=== PATIENT | female | born 1950 | race Caucasian/White ===

== ENCOUNTER 2016-10-14 12:19 | Day surgery (SDC) | payer OTHER ==
[~2016-10-14] VITALS: Ht 154.9 cm; Wt 63.5 kg
[~2016-10-14 12:19] MED LIST: 0.9% Sodium Chloride 1,000 ML IV SCH; ALBU2.5V4 INHALATION; ASPI-973 PO; ATOR20TA PO; BECL8.7A6 INHALATION; CITA20TA11 PO; CYAN10008 INJ; FLUT9.9S NS; IBUP800T28 PO; LEVO100T6 PO; LISI10TA PO; MULT-1018 PO; Sodium Chloride LOK Flush 10 mL Syringe IV PRN; fentaNYL-PF 50 mCg/mL 2 mL Inj IVPUSH PRN
[2016-10-14] MEDS ORDERED: fentaNYL-PF 50 mCg/mL 2 mL Inj IVPUSH ONE (12:20)
[2016-10-14 13:43] VITALS: BP 142/89; PULSE 60; O2SAT 100
[2016-10-14 14:59] VITALS: BP 140/67; PULSE 64; RESP 16; O2SAT 99
[2016-10-14 15:09] VITALS: BP 124/79; PULSE 65; RESP 16; O2SAT 99
--- NOTE | 2016-10-15 00:35 | ENDO ---
[address] [address] ENDOSCOPY PROCEDURE PATIENT: GERALD AGARWAL : 1950 MR#: [id number] ADMIT: 10/14/2016 JOB ID: [id number] DATE OF SERVICE: 10/14/2016 TITLE OF OPERATION: Esophagogastroduodenoscopy with biopsy. PREOPERATIVE DIAGNOSIS(ES): Weight loss and nausea. POSTOPERATIVE DIAGNOSIS(ES): Mild nonerosive gastritis. ANESTHESIA: 1. Fentanyl 100 mcg. 2. Versed 5 mg IV administered. COMPLICATIONS: None. BLOOD LOSS: Minimal. DESCRIPTION OF PROCEDURE: After risks and benefits were explained to the patient, informed consent was obtained. After anesthesia administered, upper endoscope was inserted in mouth intubating to the esophagus, stomach, second portion of duodenum. Mucosa carefully examined. After procedure was done, the scope was withdrawn. Procedure terminated. FINDINGS: Upon inspection of the esophagus, the esophagus was normal without masses, ulcers, lesions. Z-line located 40 cm from incisors. Upon entering the stomach, there was mild nonerosive gastritis that was seen. No masses, ulcers, or lesions were seen. Retroflexion was normal. Duodenal bulb, first and second portion were normal. Biopsies taken at duodenum, antrum, body stomach. IMPRESSION: Mild nonerosive gastritis, status post biopsy. RECOMMENDATIONS: Await pathology results. Follow up in GI clinic with referring provider as an outpatient. [facility]
--- NOTE | 2016-10-19 16:55 | PATH ---
SURGICAL PATHOLOGY Attending Physician:Bhargav Banuelos MD CASE STATUS: Signed Out PATIENT NAME: GERALD AGARWAL PID: [id number] : 1950 DATE COLLECTED:10/14/2016 00:00 SPECIMEN: 1: Duodenum, Biopsy 2: Stomach, Antrum, Biopsy 3: Gastric, Biopsy CLINICAL HISTORY: 1. DUODENUM BXS 2. ANTRUM BXS 3. GASTIC BODY BXS FINAL DIAGNOSIS: 1.DUODENUM, BIOPSIES: DUODENAL MUCOSA WITH NO DIAGNOSTIC ABNORMALITY. Negative for active inflammation, features of sprue, dysplasia and malignancy. 2.STOMACH, ANTRUM, BIOPSIES: ANTRAL MUCOSA WITH MILD REACTIVE GASTROPATHY AND INTESTINAL METAPLASIA. Negative for Helicobacter pylori organisms. Negative for dysplasia and malignancy. 3.STOMACH, BODY, BIOPSIES: CHRONIC GASTRITIS WITH SEVERE PARIETAL CELL ATROPHY AND INTESTINAL METAPLASIA, SEE COMMENT. Negative for Helicobacter pylori organisms. Negative for dysplasia and malignancy. ICD10 K29.4 NOTE: 3. 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 The patient' s previous slides were reviewed ([id number], [facility]), and show similar morphologic features. There is no evidence of neuroendocrine cell hyperplasia or dysplasia. Correlation with serology (antiparietal cell antibody and intrinsic factor antibodies) could be performed if clinically indicated. GROSS DESCRIPTION: Received are three formalin-filled containers, each labeled with the patient' s name. 1. Received in formalin, labeled with the patient' s name and "duodenum BXs", is one fragment of [place] tissue measuring 0.3 x 0.2 x 0.1 cm. The fragment is totally submitted in cassette 1A. 2. Received in formalin, labeled with the patient' s name and "antrum BXs", are two fragments of [place], soft tissue ranging in size from 0.1 x 0.1 x 0.1 cm to 0.2 x 0.1 x 0.1 cm. All fragments are totally submitted in cassette 2A. 3. Received in formalin, labeled with the patient' s name and "gastric body BXs", are two fragments of [place], soft tissue ranging in size from 0.1 x 0.1 x 0.1 cm to 0.2 x 0.1 x 0.1 cm. All fragments are totally submitted in cassette 3A. ([id number]) MICRO DESCRIPTION: See diagnosis. ICD-9 CODES: CPT CODES: 1: 95815 2: 06347 3: 22072 Electronically Signed Out Margarita Molina MD [facility] [address], [place] [address] Technical component performed at [facility], [address], [place], [address]
== END 2016-10-14 23:59 | disposition home or self-care (01) ==
LOC: END 12:19
PROVIDERS: ATTEND Internal Medicine Gastroenterology
DX: K29.40 Chronic atrophic gastritis without bleeding (principal); K29.50 Unspecified chronic gastritis without bleeding; R11.0 Nausea; R63.4 Abnormal weight loss; K86.0 Alcohol-induced chronic pancreatitis; E05.00 Thyrotoxicosis with diffuse goiter without thyrotoxic crisis or storm; F12.90 Cannabis use, unspecified, uncomplicated; F10.21 Alcohol dependence, in remission; Z68.26 Body mass index [BMI] 26.0-26.9, adult; Z79.82 Long term (current) use of aspirin
CPT/HCPCS: 43239; G0500; J2250; J3010; J7030